=== PATIENT | female | born 1980 | race Caucasian/White ===

== ENCOUNTER 2017-01-20 13:55 | Emergency (ER) | payer SELFPAY ==
--- NOTE | 2017-01-20 15:19 | EDM.PDOC ---
ED HPI GENERAL MEDICAL PROBLEM - General Chief Complaint: ENT Problem Stated Complaint: NOT FELLING WELL Time Seen by Provider: 01/20/17 15:05 Source of Information: Reports: Patient History Limitations: Reports: No limitations - History of Present Illness INITIAL COMMENTS - FREE TEXT/NARRATIVE: History of present illness: [36-year-old female presenting with complaints of jaw pain. Patient indicates she was diagnosed with TMJ approximately 2 or 3 years ago and that she has intermittent flares with that. 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 Past medical history: As per history of present illness and as reviewed below otherwise noncontributory. Surgical history: As per history of present illness and as reviewed below otherwise noncontributory. Social history: No reported history of drug or alcohol abuse. Family history: As per history of present illness and as reviewed below otherwise noncontributory. Physical exam: HEENT: Atraumatic, normocephalic, pupils reactive, negative for conjunctival pallor or scleral icterus, mucous membranes moist, throat clear, neck supple, nontender, trachea midline. Lungs: Clear to auscultation, breath sounds equal bilaterally, chest nontender. Heart: S1S2, regular, negative for clicks, rubs, or JVD. Abdomen: Soft, nondistended, nontender. Negative for masses or hepatosplenomegaly. Negative for costovertebral tenderness. Pelvis: Stable nontender. Genitourinary: Deferred. Rectal: Deferred. Extremities: Atraumatic, negative for cords or calf pain. Neurovascular unremarkable. Neuro: Awake, alert, oriented. Cranial nerves II through XII unremarkable. Cerebellum unremarkable. Motor and sensory unremarkable throughout. Exam nonfocal. No apparent clicking and/or grinding able to be palpated on bilateral jaws. Global assessment is benign save subjective complaint as noted in the history of present illness. Diagnostics: [] Therapeutics: [Toradol 60 mg IM] Impression: [Jaw pain] Plan: [Meloxicam, Norflex] Definitive disposition and diagnosis as appropriate pending reevaluation and review of above. jaw Pain Score (Numeric/FACES): 9 - Related Data Allergies Allergy/AdvReac Type Severity Reaction Status Date / Time No Known Allergies Allergy Verified 01/20/17 14:10 Home Meds: Home Meds Meloxicam 7.5 mg PO BID #30 tablet 01/20/17 [Rx] Orphenadrine [Norflex] 100 mg PO BID #28 tab.er 01/20/17 [Rx] Past Medical History HEENT History: Reports: Other (see below) Other HEENT History: TMJ - Past Surgical History Endocrine Surgical History: Reports: Thyroidectomy Social & Family History - Family History Family Medical History: Noncontributory - Tobacco Use Smoking Status *Q: Current Every Day Smoker Years of Tobacco use: 16 Packs/Tins Daily: 10 - Recreational Drug Use Recreational Drug Use: No ED ROS GENERAL - Review of Systems Review Of Systems: See Below (See history of present illness) ED EXAM, GENERAL - Physical Exam Exam: See Below (See history of present illness) Course - Vital Signs Last Recorded V/S: Last Vital Signs Temp 36.4 C 01/20/17 14:10 Pulse 86 01/20/17 14:10 Resp 20 01/20/17 14:10 BP 127/71 01/20/17 14:10 Pulse Ox 97 01/20/17 14:10 Departure - Departure Time of Disposition: 15:20 Disposition: Home, Self-Care 01 Condition: good Clinical Impression: Jaw pain Forms: ED Department Discharge Additional Instructions: The following information is given to patients seen in the emergency department who are being discharged to home. This information is to outline your options for follow-up care. We provide all patients seen in our emergency department with a follow-up referral. The need for follow-up, as well as the timing and circumstances, are variable depending upon the specifics of your emergency department visit. If you don't have a primary care physician on staff, we will provide you with a referral. We always advise you to contact your personal physician following an emergency department visit to inform them of the circumstance of the visit and for follow-up with them and/or the need for any referrals to a consulting specialist. The emergency department will also refer you to a specialist when appropriate. This referral assures that you have the opportunity for follow-up care with a specialist. All of these measure are taken in an effort to provide you with optimal care, which includes your follow-up. Under all circumstances we always encourage you to contact your private physician who remains a resource for coordinating your care. When calling for follow-up care, please make the office aware that this follow-up is from your recent emergency room visit. If for any reason you are refused follow-up, please contact the [facility] Emergency Department at and asked to speak to the emergency department charge nurse. Take medication as directed Followup with PCP 1-2 days Return to ED as needed as discussed [facility] Primary Care [facility] [address] [place] [id number]
[2017-01-20] MEDS ORDERED: Ketorolac 60 MG/2 ML SDV IM ONE (15:38)
[2017-01-20 19:00] VITALS: BP 137/62
== END 2017-01-20 16:01 | disposition home or self-care (01) ==
LOC: MW.ED 13:55
DX: R68.84 Jaw pain (principal)
CPT/HCPCS: 96372; 99283; J1885